=== PATIENT | female | born 1985 | race Caucasian/White ===

== ENCOUNTER 2021-10-05 14:12 | Outpatient (CLI) | payer BC, SELFPAY ==
--- NOTE | ~2021-10-05 | MMUS_ITS ---
CORRECTED REPORT ORDER CHANGE 10/08/21 [facility] [place] EXAMINATION: MM diagnostic mammo BI w jennifer, US breast RT limited HISTORY: Palpable lump of the lower-outer quadrant of the right breast, reported recent trauma TECHNIQUE: Craniocaudal, mediolateral, and mediolateral oblique 3-D tomosynthesis images of the breasts were performed and synthetic 2-D images were generated. CAD analysis was submitted and interpreted. High resolution limited right breast ultrasound was performed. COMPARISON: None, baseline BREAST PARENCHYMAL COMPOSITION: The breasts are heterogeneously dense, which may obscure small masses. FINDINGS: MAMMOGRAPHIC FINDINGS: There is no evidence of suspicious mass, calcification, or architectural distortion in either breast to suggest malignancy. No mammographic correlate is identified for the reported palpable abnormality of concern in the right breast. ULTRASOUND: There appears to be a 5 mm complex cystic and solid mass at 8:00 location 5 cm from the nipple in the area of the palpable abnormality. Patient reports having had recent trauma to the right breast in this region. IMPRESSION: 1. Possible sequela of recent trauma in the right breast in the area of the palpable abnormality. 2. Targeted ultrasound in four weeks is recommended. If the sonographic finding persists, ultrasound-guided biopsy would be recommended. BI-RADS category 4, suspicious findings. Reviewed, dictated and finalized at location A. ICAL IMMUNOLOGIST MTDD IMPRESSION: 1. Possible sequela of recent trauma in the right breast in the area of the pal pable abnormality. 2. Targeted ultrasound in four weeks is recommended. If the sonographic finding persists, ultrasound-guided biopsy would be recommended. BI-RADS category 4, suspicious findings.
== END 2021-10-05 14:13 | disposition home or self-care (01) ==
LOC: CHSIMG 14:14
PROVIDERS: PCP Physician Assistant; Visit Provider Obstetrics & Gynecology
DX: N63.10 Unspecified lump in the right breast, unspecified quadrant (principal); R92.8 Other abnormal and inconclusive findings on diagnostic imaging of breast
CPT/HCPCS: 76642; 77062; 77066; G0279

== ENCOUNTER 2021-11-03 10:28 | Outpatient (CLI) | payer BC, SELFPAY ==
--- NOTE | ~2021-11-03 | US_ITS ---
US breast RT limited INDICATION: Follow-up right breast mass TECHNIQUE: Dedicated Limited right breast ultrasound COMPARISON: 10/05/2021 FINDINGS: The right breast is composed of normal heterogeneous echotexture without focal solid or cys tic mass. Interval resolution of hypoechoic mass seen on prior examination at the 8:00 position. IMPRESSION: 1: Normal right breast ultrasound. BI-RADS CATEGORY 1 - NEGATIVE Reviewed, dictated and finalized at location A. SYSTEMS ARCHITECT
== END 2021-11-03 10:29 | disposition home or self-care (01) ==
LOC: CHSIMG 10:29
PROVIDERS: PCP Physician Assistant; Visit Provider Obstetrics & Gynecology
DX: N63.10 Unspecified lump in the right breast, unspecified quadrant (principal)
CPT/HCPCS: 76642

== ENCOUNTER 2023-08-26 09:47 | Emergency (ER) | payer BC, SELFPAY ==
[2023-08-26 09:53] VITALS: BP 141/93; PULSE 132; RESP 20; TEMP 36.9; O2SAT 99
--- NOTE | 2023-08-26 09:56 | ECG_ITS ---
Measurements Intervals [place] Rate: 94 P: 61 [place]: 116 QRS: 40 QRSD: 93 T: 48 QT: 342 QTc: 428 Interpretive Statements SINUS RHYTHM WITH SHORT [place] INTERVAL LOW QRS VOLTAGE IN PRECORDIAL LEADS INCOMPLETE RIGHT BUNDLE BRANCH BLOCK DELAYED PRECORDIAL R/S TRANSITION BORDERLINE ST-T WAVE ABNORMALITY- ANT/INF LEADS BORDERLINE ECG NO PREVIOUS ECG AVAILABLE FOR COMPARISON Electronically Signed On 08-26-2023 10:55:18 [employer] CARDS [employer] ANNOUNCEMENTS by Erasmo Lawrence D.O.
--- NOTE | 2023-08-26 10:25 | ED.GENADULT ---
HPI - General Adult General Chief complaint: Unspecified Stated complaint: abdominal pain Time Seen by Provider: 08/26/23 09:57 Source: patient Mode of arrival: ambulatory History of Present Illness HPI narrative: patient is a 38-year-old female with this significant past medical history that presents today for muscle spasm in the upper abdomen. She states has been gone since June she has had muscle spasm in the upper abdomen area. She states she has also seen some pulsation in her stomach lower abdominal area. She does have a history of smoking. She denies any chest pain or shortness of breath. Denies any other symptoms. She has no other complaints Onset (ago): month(s) Location: abdomen Radiation: non-radiation Severity: mild Severity scale (1-10): 1 Quality: other ( spasm) Pain Consistency: intermittent Relieving factors: none Exacerbating factors: none Associated symptoms: denies other symptoms Treatments prior to arrival: none Related Data Allergies Allergy/AdvReac Type Severity Reaction Status Date / Time No Known Allergies Allergy Verified 09/29/21 09:57 Review of Systems Review of Systems: All systems reviewed & are unremarkable except as noted in HPI and below Constitutional: Constitutional: Reports no additional constitutional complaints Eyes: Eyes: Reports no additional eye complaints ENT: Reports system reviewed and no additional complaints, except as documented Cardiovascular: Cardiovascular: Reports no additional cardiovascular complaints Respiratory: Respiratory: Reports no additional respiratory complaints Gastrointestinal: Gastrointestinal: Reports other ( abdominal muscle spasm upper abdomen) Genitourinary: Genitourinary: Reports no additional female genitourinary complaints Musculoskeletal: Musculoskeletal: Reports no additional musculoskeletal complaints Comments: abdominal muscle spasm upper abdomen Integumentary/Breasts: Skin/Breast: Reports system reviewed and no additional complaints, except as docu Neurologic: Reports system reviewed and no additional complaints, except as documented Psychiatric: Psychiatric: Reports no additional psychiatric complaints Endocrine: Endocrine: Reports no additional endocrine complaints Hematologic/Lymphatic: Hematologic/Lymphatic: Reports no additional hematologic/lymphatic complaints [facility] Past Medical History Medical History No active medical problems Surgical History Surgical History History of bilateral tubal ligation [place] teeth extracted 2009, 2016 Family History Family History Father Diabetes mellitus Hypertension Heart problem Cerebrovascular accident Mother Diabetes mellitus Hypertension Heart problem Sibling Renal cancer Diabetes mellitus Social History Social History Smoking status: Current every day smoker Alcohol intake: never Substance use: never Agree to blood products: Yes Exam Const: General: healthy appearing Nutritional Appearance: average body habitus Orientation/consciousness: oriented to person Limitations: no limitations HENMT: Head: normal to inspection Ears: hearing grossly normal bilaterally Mouth: Yes Normal oral and palatal mucosa present Eyes: General: appearance normal, both eyes and all related structures Pupils: Equal, round and reactive pupils present EOM: EOMs intact bilaterally Neck: Neck: normal visual inspection Thyroid: thyroid normal Chest: Chest palpation & inspection: normal inspection of the chest Resp: Effort & Inspection: normal respiratory effort Auscultation: clear to auscultation bilaterally Percussion: percussion normal Cardio: Jugular venous distension: no JVD Palpation: normal PMI Rate: regular rate Rhythm:
[2023-08-26 10:44] VITALS: BP 111/59; PULSE 81; RESP 20; TEMP 36.7; O2SAT 98
== END 2023-08-26 10:56 | disposition home or self-care (01) ==
LOC: CHSED 10:37
PROVIDERS: Emergency Provider Family Medicine; PCP Physician Assistant
DX: M62.838 Other muscle spasm (principal); F17.200 Nicotine dependence, unspecified, uncomplicated
CPT/HCPCS: 93005; 99283